=== PATIENT | male | born 2000 | race Caucasian/White ===

== ENCOUNTER → 2022-05-17 08:38 | Outpatient (BNVA) | payer OTHER, SELFPAY | PROVIDERS: Visit Provider Registered Nurse | DX: Z02.83 Encounter for blood-alcohol and blood-drug test (principal) | CPT/HCPCS: 80307 ==

== ENCOUNTER → 2023-12-23 13:25 | Outpatient (BNVA) | payer SELFPAY | PROVIDERS: Visit Provider Nurse Practitioner Family | DX: Z02.4 Encounter for examination for driving license (principal) | CPT/HCPCS: 81000 ==